=== PATIENT | female | born 2000 | race African-American/Black ===

== ENCOUNTER 2024-11-19 14:29 | Observation (INO) | payer MEDICAID ==
[2024-11-19] MEDS ORDERED: PREN1TAB71 OR (15:34)
[2024-11-19] MEDS ORDERED: ASPI1TAB20 PO (15:34)
[2024-11-19] MEDS ORDERED: LEVO200I5 IV (15:34)
--- NOTE | 2024-11-19 17:38 | DVHDS2 ---
Physician Discharge Progress N Final Diagnosis: DEC MOVWMWNT RESOLVED Operations or Procedures: Operations or Procedures NST,SONO Condition on Discharge: Good Disposition: Home Discharge Instructions: Diet: Regular Activity: No Restrictions, As Tolerated Medications: NA Follow Up Care: Specialist: 1D Discharge Statement: "Patient was advised to return to the ER or call 911 if any headaches, dizziness, shortness of breath, chest pain, abdominal pain, bleeding, fevers, or worsening of medical condition. Patient was counseled about treatment plan, medications, possible side effects, patientverbalized understanding. All questions were answered to the best of my ability. This discharge took greater then 30 minutes in planning, reviewing documenta tion, counseling the patient, and discussing with other team members." STEPHEN NAIR DO Nov 19, 2024 17:38
== END 2024-11-19 15:50 | disposition home or self-care (01) ==
LOC: LDRP 14:29
PROVIDERS: ADMIT Obstetrics & Gynecology; ATTEND Obstetrics & Gynecology
DX: O36.8120 Decreased fetal movements, second trimester, not applicable or unspecified (principal); Z98.890 Other specified postprocedural states; Z79.899 Other long term (current) drug therapy; Z3A.27 27 weeks gestation of pregnancy
CPT/HCPCS: 59025; 81002; G0378

== ENCOUNTER → 2025-01-31 | Outpatient (CLI) | payer MEDICAID ==
[~2025-01-31] MED LIST: ASPI1TAB20 PO; LEVO200I5 IV; PREN1TAB71 OR
[2025-01-31 10:14] LABS: Basophils # (auto) 0 10 ^3/uL (0-0.2); Basophils % (auto) 0.2 % (0.0-2.0); Eosinophils # (auto) 0.2 10 ^3/uL (0-0.8); Eosinophils % (auto) 2.1 % (0.0-7.0); Hematocrit 37.2 % (36.0-46.0); Hemoglobin 12.3 g/dL (12.2-16.2); Lymphocytes # (auto) 2.2 10 ^3/uL (0.4-5.4); Lymphocytes % (auto) 23.3 % (10.0-50.0); Mean Corpuscular Hemoglobin 27.4 pg (28.0-32.0); Mean Corpuscular Hgb Conc. 33.1 g/dL (32.0-36.0); Mean Corpuscular Volume 82.6 fL (80.0-100.0); Monocytes # (auto) 0.5 10 ^3/uL (0-1.3); Neutrophils # (auto) 6.5 10 ^3/uL (1.6-8.6); Neutrophils % (auto) 69.4 % (37.0-80.0); Platelet Count (auto) 198 10^3/uL (140-450); Red Cell Distribution Width 15.6 % (11.8-14.3); White Blood Cell 9.4 10^3/uL (4.4-10.8)
[2025-01-31 10:31] LABS: Alanine Aminotransferase 15 U/L (7-40); Albumin 3.8 g/dL (3.2-4.8); Anion Gap 8 (5-15); Calcium 9.7 mg/dL (8.7-10.4); Carbon Dioxide 23 mmol/L (20-31); Glucose 83 mg/dL (74-106); Potassium 3.8 mmol/L (3.5-5.1); Sodium 139 mmol/L (136-145); Total Protein 6.5 g/dL (5.7-8.2)
[2025-01-31 10:32] LABS: Bilirubin, Total 0.4 mg/dL (0.2-1.0)
[2025-01-31 10:38] LABS: Alkaline Phosphatase 132 U/L (46-116); Aspartate Aminotransferase 11 U/L (13-40); BUN/Creatinine Ratio 8.5 (10.0-20.0); Blood Urea Nitrogen < 5 mg/dL (9-23); Chloride 108 mmol/L (98-107)
== END | disposition home or self-care (01) ==
LOC: LAB 09:38
PROVIDERS: ATTEND Obstetrics & Gynecology
DX: O99.280 Endocrine, nutritional and metabolic diseases complicating pregnancy, unspecified trimester (principal); E28.2 Polycystic ovarian syndrome; Z3A.00 Weeks of gestation of pregnancy not specified
CPT/HCPCS: 36415; 80053; 83036; 84439; 84443; 85025; 86850; 86900; 86901

== ENCOUNTER 2025-02-02 07:04 | Inpatient (IN) | payer MEDICAID ==
[~2025-02-02] VITALS: Ht 149.9 cm; Wt 129.3 kg
[2025-02-02] MEDS: LACT. RINGERS/OXYTOCIN 20UNITS 500 ML IV ONE ×2 (09:15→09:45)
[2025-02-02] MEDS ORDERED: LIDOCAINE 2%HCL (LOCAL ANESTH.) INJ 20ML MDV IJ PRN (09:15)
[2025-02-02] MEDS: LACTATED RINGER'S 1,000 ML IV SCH (09:15)
[2025-02-02 09:54] LABS: Albumin 4.1 g/dL (3.2-4.8); Anion Gap 8 (5-15); Basophils # (auto) 0 10 ^3/uL (0-0.2); Basophils % (auto) 0.2 % (0.0-2.0); Calcium 9.7 mg/dL (8.7-10.4); Carbon Dioxide 20 mmol/L (20-31); Eosinophils # (auto) 0.2 10 ^3/uL (0-0.8); Eosinophils % (auto) 1.5 % (0.0-7.0); Glucose 85 mg/dL (74-106); Hematocrit 40.4 % (36.0-46.0); Hemoglobin 13.4 g/dL (12.2-16.2); Lymphocytes % (auto) 19.6 % (10.0-50.0); Mean Corpuscular Hemoglobin 27.3 pg (28.0-32.0); Mean Corpuscular Hgb Conc. 33.2 g/dL (32.0-36.0); Mean Corpuscular Volume 82.3 fL (80.0-100.0); Monocytes # (auto) 0.5 10 ^3/uL (0-1.3); Monocytes % (auto) 5.3 % (0.0-12.0); Neutrophils # (auto) 7.6 10 ^3/uL (1.6-8.6); Neutrophils % (auto) 73.4 % (37.0-80.0); Nucleated Red Blood Cells % 0.1 %; Platelet Count (auto) 215 10^3/uL (140-450); Potassium 3.8 mmol/L (3.5-5.1); Red Blood Cells 4.92 10^6/uL (4.0-5.20); Red Cell Distribution Width 15.6 % (11.8-14.3); Sodium 137 mmol/L (136-145); Total Protein 6.9 g/dL (5.7-8.2); White Blood Cell 10.4 10^3/uL (4.4-10.8)
[2025-02-02 09:55] LABS: Bilirubin, Total 0.6 mg/dL (0.2-1.0)
[2025-02-02 09:59] LABS: Alanine Aminotransferase 9 U/L (7-40); Alkaline Phosphatase 139 U/L (46-116); Aspartate Aminotransferase 13 U/L (13-40); BUN/Creatinine Ratio 8.8 (10.0-20.0); Blood Urea Nitrogen < 5 mg/dL (9-23); Chloride 109 mmol/L (98-107); INR 0.93 (0.9-1.15); Partial Thromboplastin Time 27.1 SEC (24.5-34.5); Prothrombin Time 9.9 sec (9.3-11.8)
[2025-02-02 10:01] LABS: Amphetamine Screen, Urine Neg (NEGATIVE); Barbiturate Scree,Urine Neg (NEGATIVE); Benzodiazephine Screen, Urine Neg (NEGATIVE); Cannabinoid Screen, Urine Neg (NEGATIVE); Cocaine Screen, Urine Neg (NEGATIVE); Opiate Scree,Urine Neg (NEGATIVE); Phencyclidine Screen, Urine Neg (NEGATIVE)
[2025-02-02 10:22] LABS: Urine Bacteria MOD /hpf (None Seen); Urine Blood Negative /uL (Negative); Urine Clarity Ex.Turbid (Clear); Urine Mucus FEW (None Seen); Urine Protein, UAD 1+ (Negative); Urine Specific Gravity 1.026 (1.001-1.035); Urine Squamous Epithelial Cell MANY /hpf (<5); Urine Urobilinogen 3 mg/dL (Negative); Urine WBC 40 /HPF (0-5)
[2025-02-02 10:24] LABS: Urine Color DARK YELLOW (Yellow)
--- NOTE | 2025-02-02 11:24 | DVH ---
LIMITED OB ULTRASOUND > 14 WKS: HISTORY: IOL- verification of cephalic presentation TECHNIQUE: Multiple real-time grayscale images of the gravid uterus with duplex Doppler color flow an d M-mode spectral analysis. TRANSDUCER: Transabdominal COMPARISON: None FINDINGS/IMPRESSION: heart rate 164 beats per minute FRANCISCO 18.1 cm Cervix is not visualized Cephalic Presentation Posterior/fundal Placenta without previa or abruption.
[2025-02-02] MEDS: miSOPROStol 50 MCG per PRE-CUT 1/2 TAB PO PRN (11:56)
--- NOTE | 2025-02-02 14:12 | DVHHP2 ---
OB CC & HPI Date Date of Admission: Feb 02, 2025 Patient Identification: : 1 Para: 0 EDC: Feb 12, 2025 EGA: 38+wks Chief Complaints: Reason for admission: induction of labor Admission Nurse Assessment Rev: No History of Present Complaints pt is admitted for induction of labor due to gdm ,decreased movement. no report of vag bleeding Past Medical History Cardiac: No pertinent Hx Pulmonary: No pertinent Hx Central Nervous System: No pertinent Hx GI: No pertinent Hx Hemotology/Oncology: No pertinent Hx Hepatobiliary: No pertinent Hx Psychiatric: No pertinent Hx Musculoskeletal: No pertinent Hx Rheumotologic: No pertinent Hx Infectious Disease: No peritnent Hx ENT: No pertinent Hx Renal/: No pertinent Hx Endocrine: No pertinent Hx Dermatology: No pertinent Hx Past Surgical History: No pertinent Hx OB History OB History Care: Good Care Ultrasounds: Normal mid trimester US Obstetrical Complications: Gestational Diabetes Medical Complications: None Allergies: Coded Allergies: Iodide (Verified Allergy, Unknown, 02/02/25) Shellfish Allergy (Verified Allergy, Unknown, 02/02/25) Home Meds Reported Medications Levothyroxine Sodium (LEVOTHYROXINE SODIUM) 200 Mcg Inj, 200 MCG IV, INJ 11/19/24 Aspirin (Aspir-81) 81 Mg Tab, 1 TAB PO DAILY, #30 TAB 5 Refills 11/19/24 Vit W/ Ferrous Fumara (PNV PLUS MULTIVI) Plus Tab, 1 OR, TAB 11/19/24 Current Medications Current Medications Medications (Trade) Dose Ordered Sig/Rehan Route PRN Reason Start Time Stop Time Status Last Admin Lactated Ringer's 1,000 ml @ 125 mls/hr Q8H IV 02/02/25 09:15 02/02/25 09:15 Nalbuphine HCl (Nubain) 10 mg Q4HP PRN IV MODERATE PAIN (4-6 PAIN SCALE) 02/02/25 09:15 Witch Tisha (Tucks) 1 pad PRN PRN TOP PERINEAL AREA DISCOMFORT 02/02/25 09:15 Sodium Lauryl Sulfate (Phisoderm) 240 ml PRN PRN TOP PERINEAL AREA DISCOMFORT 02/02/25 09:15 Benzocaine (Dermoplast) 1 applic PRN PRN TOP PERINEAL AREA DISCOMFORT 02/02/25 09:15 Misoprostol (Cytotec) 50 mcg Q4HPRN PRN PO CERVICAL RIPENING 02/02/25 09:15 02/02/25 11:56 Lidocaine HCl (Xylocaine) 20 ml ONCE PRN IJ PERINEAL AREA DISCOMFORT 02/02/25 09:15 Ondansetron HCl (Zofran) 4 mg Q4HPRN PRN IV NAUSEA / VOMITING 02/02/25 09:15 Levothyroxine Sodium (Synthroid Tablet) 75 mcg QAM PO 02/03/25 05:00 Family & Social History Family/Social History Blood Type: B+ Rubella: immune RPR/VDRL: Negative GBS Status: Negative HBsAG: Negative Review of Systems Constitutional: No symptom reported Ears, Nose, & Throat: No symptom reported Eyes: No symptom reported Pulmonary/Respiratory: No symptom reported Cardiovascular: No symptom reported Gastrointestinal: No symptom reported Genitourinary: No symptom reported Musculoskeletal: No symptom reported Skin: No symptom reported Psychiatric: No symptom reported Endocrine: No symptom reported Hemotologic/Lymphatic: No symptom reported OB Admission Exam Physical Exam HEENT: TMs Normal, Fontanelles Normal, Nasal Mucosa Normal, Eyes non-injected, Oropharynx Normal, PERRLA, Moist Membranes, EOMI Heart: Rhythm Normal Lungs: Clear Abdomen: Non tender Extremities: Normal Reflexes: Normal Cervical Dilatation: Fingertip Effacement: 50% Station: -3 Membranes: Intact Heart Rate: 130's Accelerations: Accelerations Present Decelerations: No Decelerations Short Term Variability: Present Rn Patient Care Variability: Average (6-25) Intensity: Mild OB Plan Plan Admitting Diagnosis: induction of labor gdm morbid obesity Plan: Induction Induction Methd: Misoprostol protocol Other Plan: informed consent obtained risks and complication of induction d/w pt. all questions answered pt fully understands and wishe sto proceed w/iol Visit Coding OBGYN Date of Service: Feb 02, 2025 Billing Provider: STEPHEN NAIR DO RN [facility] Common Visit Codes: [id number] SAME DATE (HIGH) RN [facility] Consultation Codes: [id number] CONSULT <80MIN STEPHEN NAIR DO Feb 02, 2025 14:12
[2025-02-02 20:19] LABS: Urine Bacteria None Seen /hpf (None Seen)
[2025-02-02 20:38] LABS: Urine Amorphous Crystal FEW /hpf (None Seen); Urine Blood Negative /uL (Negative); Urine Clarity Clear (Clear); Urine Color Yellow (Yellow); Urine Mucus FEW (None Seen); Urine Protein, UAD TRACE (Negative); Urine Specific Gravity 1.021 (1.001-1.035); Urine Squamous Epithelial Cell FEW /hpf (<5); Urine Urobilinogen 2 mg/dL (Negative); Urine WBC 2 /HPF (0-5)
[2025-02-02] MEDS: DERMOPLAST 60ML BOTTLE TOP PRN (21:50)
[2025-02-02] MEDS: PHISODERM TOP SOLN 240ML BTL TOP PRN (21:50)
[2025-02-02] MEDS: WITCH HAZEL-GLYCERIN PAD TOP PRN (21:50)
[2025-02-03 03:33] VITALS: BP 105/62; PULSE 58; RESP 16; TEMP 98; O2SAT 95
[2025-02-03] MEDS: LEVOTHYROXINE SODIUM 25 MCG TAB PO SCH (04:44)
--- NOTE | 2025-02-03 07:13 | DVHPN2 ---
Chief Complaints Patient reports: No new complaints Nursing reports: No new complaints Objective Vitals Vital Signs Date Time Temp Pulse Resp B/P (MAP) Pulse Ox O2 Delivery O2 Flow Rate FiO2 02/03/25 03:33 98.0 58 16 105/62 (76) 95 98.0 Medications Current Medications Medications (Trade) Dose Ordered Sig/Rehan Route PRN Reason Start Time Stop Time Status Last Admin Benzocaine (Dermoplast) 1 applic PRN PRN TOP PERINEAL AREA DISCOMFORT 02/02/25 09:15 02/02/25 21:50 Lactated Ringer's 1,000 ml @ 125 mls/hr Q8H IV 02/02/25 09:15 02/03/25 01:20 Levothyroxine Sodium (Synthroid Tablet) 75 mcg QAM PO 02/03/25 05:00 02/03/25 04:44 Lidocaine HCl (Xylocaine) 20 ml ONCE PRN IJ PERINEAL AREA DISCOMFORT 02/02/25 09:15 Misoprostol (Cytotec) 50 mcg Q4HPRN PRN PO CERVICAL RIPENING 02/02/25 09:15 02/03/25 07:00 Nalbuphine HCl (Nubain) 10 mg Q4HP PRN IV MODERATE PAIN (4-6 PAIN SCALE) 02/02/25 09:15 Ondansetron HCl (Zofran) 4 mg Q4HPRN PRN IV NAUSEA / VOMITING 02/02/25 09:15 Sodium Lauryl Sulfate (Phisoderm) 240 ml PRN PRN TOP PERINEAL AREA DISCOMFORT 02/02/25 09:15 02/02/25 21:50 Witch Tisha (Tucks) 1 pad PRN PRN TOP PERINEAL AREA DISCOMFORT 02/02/25 09:15 02/02/25 21:50 Others ve-1cm/60/-2 Studies Laboratory Tests 02/02/25 09:15 Test 02/02/25 09:15 Range/Units Serum Glucose 85 74-106 mg/dL Ass/Plan Assessment iol for gdm Plan pt endorsed to dr lin oncall doctor Visit Coding OBGYN Date of Service: Feb 03, 2025 Billing Provider: STEPHEN NAIR DO [employer] Common Visit Codes: [id number] DISCH DAY <30MIN STEPHEN NAIR DO Feb 03, 2025 07:13
--- NOTE | 2025-02-03 16:04 | DVHPN2 ---
OB Labor Progress Note Date and Time Seen Date Seen: Feb 03, 2025 Time Seen: 16:00 Subjective Patient reports: No new complaints Objective Vital Signs VSS Monitoring Method Monitoring Method: External Heart Rate Heart Rate Baseline: 150 Heart Rate Variability: Moderate Presence of FHR Accelerations: Yes Presence of FHR Decelerations: No Contractions Contractions Intensity: Moderate Membranes Membranes: Intact Vaginal Exam Vaginal Exam Dilation: 1 Vaginal Exam Effacement: 50 Vaginal Exam Station: -3 Vaginal Exam Presentation: VTX Vaginal Exam Show: Small (Inetec Cervical dil balloon inserted tolerated well. 80ml each balloon) Medications Medications - Pitocin: No Medication - Epidural: No Lab Results Lab Results Vital Signs Date Time Temp Pulse Resp B/P (MAP) Pulse Ox O2 Delivery O2 Flow Rate FiO2 02/03/25 03:33 98.0 58 16 105/62 (76) 95 98.0 Current Medications Medications (Trade) Dose Ordered Sig/Rehan Start Time Stop Time Status Last Admin Dose Admin Lactated Ringer's 1,000 ml @ 125 mls/hr Q8H 02/02/25 09:15 02/03/25 01:20 125 MLS/HR Nalbuphine HCl (Nubain) 10 mg Q4HP PRN 02/02/25 09:15 Witch Tisha (Tucks) 1 pad PRN PRN 02/02/25 09:15 02/02/25 21:50 1 PAD Sodium Lauryl Sulfate (Phisoderm) 240 ml PRN PRN 02/02/25 09:15 02/02/25 21:50 240 ML Benzocaine (Dermoplast) 1 applic PRN PRN 02/02/25 09:15 02/02/25 21:50 1 APPLIC Misoprostol (Cytotec) 50 mcg Q4HPRN PRN 02/02/25 09:15 02/03/25 11:32 50 MCG Lidocaine HCl (Xylocaine) 20 ml ONCE PRN 02/02/25 09:15 Ondansetron HCl (Zofran) 4 mg Q4HPRN PRN 02/02/25 09:15 Oxytocin 500 ml @ 999 mls/hr Q31M ONCE 02/02/25 09:15 02/02/25 09:45 DC Oxytocin 500 ml @ 125 mls/hr Q4H ONCE 02/02/25 09:45 02/02/25 13:44 DC Levothyroxine Sodium (Synthroid Tablet) 75 mcg QAM 02/03/25 05:00 02/03/25 08:41 DC 02/03/25 04:44 75 MCG Levothyroxine Sodium (Synthroid Tablet) 75 mcg DAILY@0500 02/04/25 05:00 Laboratory Tests Test 02/03/25 15:25 02/02/25 19:40 02/02/25 09:15 02/02/25 07:50 Range/Units POC Glucose 123 H 70-106 mg/dl Urine Color Yellow Yellow Urine Clarity Clear Clear Urine pH 6.0 5.0-9.0 Urine Specific [place] 1.021 1.001-1.035 Urine Protein Trace H Negative Urine Ketones Negative Negative Urine Blood Negative Negative /uL Urine Nitrite Negative Negative Urine Bilirubin Negative Negative Urine Urobilinogen 2 H Negative mg/dL Urine Leukocyte Esterase Trace Negative /uL Urine RBC 1 0 - 4 /hpf Urine Microscopic WBC 2 0-5 /HPF Urine Squamous Epithelial Cells Few <5 /hpf Urine Amorphous Crystals Few None Seen /hpf Urine Bacteria None seen None Seen /hpf Urine Mucus Few None Seen Urine Glucose Normal Normal mg/dL White Blood Count 10.4 4.4-10.8 10^3/uL Red Blood Count 4.92 4.0-5.20 10^6/uL Hemoglobin 13.4 12.2-16.2 g/dL Hematocrit 40.4 36.0-46.0 % Mean Corpuscular Volume 82.3 80.0-100.0 fL Mean Corpuscular Hemoglobin 27.3 L 28.0-32.0 pg Mean Corpuscular Hemoglobin Concent 33.2 32.0-36.0 g/dL Red Cell Distribution Width 15.6 H 11.8-14.3 % Platelet Count 215 140-450 10^3/uL Mean Platelet Volume 10.0 6.9-10.8 fL Neutrophils (%) (Auto) 73.4 37.0-80.0 % Lymphocytes (%) (Auto) 19.6 10.0-50.0 % Monocytes (%) (Auto) 5.3 0.0-12.0 % Eosinophils (%) (Auto) 1.5 0.0-7.0 % Basophils (%) (Auto) 0.2 0.0-2.0 % Neutrophils # (Auto) 7.6 1.6-8.6 10 ^3/uL Lymphocytes # (Auto) 2.0 0.4-5.4 10 ^3/uL Monocytes # (Auto) 0.5 0-1.3 10 ^3/uL Eosinophils # (Auto) 0.2 0-0.8 10 ^3/uL Basophils # (Auto) 0 0-0.2 10 ^3/uL Nucleated Red Blood Cells 0.1 % Prothrombin Time 9.9 9.3-11.8 sec Prothrombin Time INR 0.93 0.9-1.15 Activated Partial Thromboplast Time 27.1 24.5-34.5 SEC Sodium Level 137 136-145 mmol/L Potassium Level 3.8 3.5-5.1 mmol/L Chloride Level 109 H 98-107 mmol/L Carbon Dioxide Level 20 20-31 mmol/L Anion Gap 8 5-15 Blood Urea Nitrogen < 5 L 9-23 mg/dL Creatinine 0.57 0.550-1.02 mg/dL Glomerular Filtration Rate Calc 128 >90 mL/min BUN/Creatinine Ratio 8.8 L 10.0-20.0 Serum Glucose 85 74-106 mg/dL Calcium Level 9.7 8.7-10.4 mg/dL Total Bilirubin 0.6 0.2-1.0 mg/dL Aspartate Amino Transferase (AST) 13 13-40 U/L Alanine Aminotransferase (ALT) 9 7-40 U/L Alkaline Phosphatase 139 H 46-116 U/L Total Protein 6.9 5.7-8.2 g/dL Albumin 4.1 3.2-4.8 g/dL Treponema pallidum Antibody Non-reactive Negative Hepatitis C Antibody Negative Negative Urine Opiates Screen Neg NEGATIVE Urine Fentanyl Screen Neg NEGATIVE Urine Barbiturates Screen Neg NEGATIVE Urine Phencyclidine Screen Neg NEGATIVE Urine Amphetamines Screen Neg NEGATIVE Urine Benzodiazepines Screen Neg NEGATIVE Urine Cocaine Screen Neg NEGATIVE Urine Cannabinoids Screen Neg NEGATIVE Assessment Assessment Term IUP GDMA1 Morbid obesity Plan Plan s/p Cytotec x 6 doses Minimal cervical effacement/dilation Cook's cervical ripening Balloon inserted in usual fashion tolerated well Continue to observe Plan discussed with: Patient, Other (RN) Visit Coding OBGYN Date of Service: Feb 03, 2025 Billing Provider: RUSS NAVARRETE DO DIGITAL PRODUCTION MANAGER Common Visit Codes: [id number] INP/OBS CARE(HIGH) RUSS NAVARRETE DO Feb 03, 2025 16:04
[2025-02-03] MEDS: ONDANSETRON HCL 4 MG/2 ML VIAL IV PRN (17:58)
[2025-02-03] MEDS: NALBUPHINE HCL 10 MG/1ml INJECTION IV PRN (17:59)
[2025-02-03] MEDS: NALOXONE HCL 0.4 MG/ML VIAL IV ONE (22:15)
[2025-02-03] MEDS: ePHEDrine SULFATE 50 MG/ML AMP IV ONE (22:15)
[2025-02-03] MEDS ORDERED: TERBUTALINE SULFATE 1 MG/ML 1ML VIAL SC PRN (23:30)
[2025-02-03] MEDS: LACTATED RINGER'S 1,000 ML IV ONE (23:56)
--- NOTE | 2025-02-04 04:00 | DVHPN2 ---
OB Labor Progress Note Date and Time Seen Date Seen: Feb 04, 2025 Time Seen: 03:56 Subjective Patient reports: No new complaints, Feels better (s/p Epidural) Subjective Comment Cervical COOK Balloon expelled spontaneously . Patient was 4cm dilated started on Pitocin. s/p Epidural Resting comfortably Objective Vital Signs Afeb VS stable Monitoring Method Monitoring Method: Internal Heart Rate Heart Rate Baseline: 125 Heart Rate Variability: Moderate Presence of FHR Accelerations: Yes Presence of FHR Decelerations: No Contractions Contractions Frequency: Other (2-3 in 10 mins) Contractions Intensity: Moderate Contractions Resting Tone: Relaxed Membranes Membranes: Ruptured (AROM clear fluid) Amniotic Fluid Color: Clear Vaginal Exam Vag Exam Deferred: No Vaginal Exam Dilation: 4 Vaginal Exam Effacement: 80 Vaginal Exam Station: -2 Vaginal Exam Presentation: VTX Vaginal Exam Show: None Medications Medications - Pitocin: Yes Medication - Epidural: Yes Lab Results Lab Results Vital Signs Date Time Temp Pulse Resp B/P (MAP) Pulse Ox O2 Delivery O2 Flow Rate FiO2 02/03/25 17:59 90 18 132/76 02/03/25 03:33 98.0 95 98.0 Current Medications Medications (Trade) Dose Ordered Sig/Rehan Start Time Stop Time Status Last Admin Dose Admin Lactated Ringer's 1,000 ml @ 125 mls/hr Q8H 02/02/25 09:15 02/04/25 08:52 125 MLS/HR Nalbuphine HCl (Nubain) 10 mg Q4HP PRN 02/02/25 09:15 02/03/25 17:59 10 MG Witch Tisha (Tucks) 1 pad PRN PRN 02/02/25 09:15 02/02/25 21:50 1 PAD Sodium Lauryl Sulfate (Phisoderm) 240 ml PRN PRN 02/02/25 09:15 02/02/25 21:50 240 ML Benzocaine (Dermoplast) 1 applic PRN PRN 02/02/25 09:15 02/02/25 21:50 1 APPLIC Misoprostol (Cytotec) 50 mcg Q4HPRN PRN 02/02/25 09:15 02/03/25 11:32 50 MCG Lidocaine HCl (Xylocaine) 20 ml ONCE PRN 02/02/25 09:15 Ondansetron HCl (Zofran) 4 mg Q4HPRN PRN 02/02/25 09:15 02/04/25 01:30 4 MG Oxytocin 500 ml @ 999 mls/hr Q31M ONCE 02/02/25 09:15 02/02/25 09:45 DC Oxytocin 500 ml @ 125 mls/hr Q4H ONCE 02/02/25 09:45 02/02/25 13:44 DC Levothyroxine Sodium (Synthroid Tablet) 75 mcg QAM 02/03/25 05:00 02/03/25 08:41 DC 02/03/25 04:44 75 MCG Levothyroxine Sodium (Synthroid Tablet) 75 mcg DAILY@0500 02/04/25 05:00 02/04/25 05:18 75 MCG Naloxone HCl (Narcan) 0.2 mg PRN ONCE 02/03/25 22:15 02/03/25 22:16 DC Ephedrine Sulfate (ePHEDrine SULFATE) 10 mg PRN ONCE 02/03/25 22:15 02/03/25 22:16 DC Lactated Ringer's 1,000 ml @ 1,000 mls/hr Q1H ONCE 02/03/25 22:15 02/03/25 23:14 DC 02/03/25 23:56 1,000 MLS/HR Oxytocin 1,000 ml @ 6 ml/hr Q24H 02/03/25 23:30 02/04/25 04:32 6 ML/HR Terbutaline Sulfate (Brethine Inj) 0.25 mg ONCE PRN 02/03/25 23:30 Laboratory Tests Test 02/04/25 07:05 02/02/25 19:40 02/02/25 09:15 02/02/25 07:50 Range/Units POC Glucose 83 70-106 mg/dl Urine Color Yellow Yellow Urine Clarity Clear Clear Urine pH 6.0 5.0-9.0 Urine Specific [place] 1.021 1.001-1.035 Urine Protein Trace H Negative Urine Ketones Negative Negative Urine Blood Negative Negative /uL Urine Nitrite Negative Negative Urine Bilirubin Negative Negative Urine Urobilinogen 2 H Negative mg/dL Urine Leukocyte Esterase Trace Negative /uL Urine RBC 1 0 - 4 /hpf Urine Microscopic WBC 2 0-5 /HPF Urine Squamous Epithelial Cells Few <5 /hpf Urine Amorphous Crystals Few None Seen /hpf Urine Bacteria None seen None Seen /hpf Urine Mucus Few None Seen Urine Glucose Normal Normal mg/dL White Blood Count 10.4 4.4-10.8 10^3/uL Red Blood Count 4.92 4.0-5.20 10^6/uL Hemoglobin 13.4 12.2-16.2 g/dL Hematocrit 40.4 36.0-46.0 % Mean Corpuscular Volume 82.3 80.0-100.0 fL Mean Corpuscular Hemoglobin 27.3 L 28.0-32.0 pg Mean Corpuscular Hemoglobin Concent 33.2 32.0-36.0 g/dL Red Cell Distribution Width 15.6 H 11.8-14.3 % Platelet Count 215 140-450 10^3/uL Mean Platelet Volume 10.0 6.9-10.8 fL Neutrophils (%) (Auto) 73.4 37.0-80.0 % Lymphocytes (%) (Auto) 19.6 10.0-50.0 % Monocytes (%) (Auto) 5.3 0.0-12.0 % Eosinophils (%) (Auto) 1.5 0.0-7.0 % Basophils (%) (Auto) 0.2 0.0-2.0 % Neutrophils # (Auto) 7.6 1.6-8.6 10 ^3/uL Lymphocytes # (Auto) 2.0 0.4-5.4 10 ^3/uL Monocytes # (Auto) 0.5 0-1.3 10 ^3/uL Eosinophils # (Auto) 0.2 0-0.8 10 ^3/uL Basophils # (Auto) 0 0-0.2 10 ^3/uL Nucleated Red Blood Cells 0.1 % Prothrombin Time 9.9 9.3-11.8 sec Prothrombin Time INR 0.93 0.9-1.15 Activated Partial Thromboplast Time 27.1 24.5-34.5 SEC Sodium Level 137 136-145 mmol/L Potassium Level 3.8 3.5-5.1 mmol/L Chloride Level 109 H 98-107 mmol/L Carbon Dioxide Level 20 20-31 mmol/L Anion Gap 8 5-15 Blood Urea Nitrogen < 5 L 9-23 mg/dL Creatinine 0.57 0.550-1.02 mg/dL Glomerular Filtration Rate Calc 128 >90 mL/min BUN/Creatinine Ratio 8.8 L 10.0-20.0 Serum Glucose 85 74-106 mg/dL Calcium Level 9.7 8.7-10.4 mg/dL Total Bilirubin 0.6 0.2-1.0 mg/dL Aspartate Amino Transferase (AST) 13 13-40 U/L Alanine Aminotransferase (ALT) 9 7-40 U/L Alkaline Phosphatase 139 H 46-116 U/L Total Protein 6.9 5.7-8.2 g/dL Albumin 4.1 3.2-4.8 g/dL Treponema pallidum Antibody Non-reactive Negative Hepatitis C Antibody Negative Negative Urine Opiates Screen Neg NEGATIVE Urine Fentanyl Screen Neg NEGATIVE Urine Barbiturates Screen Neg NEGATIVE Urine Phencyclidine Screen Neg NEGATIVE Urine Amphetamines Screen Neg NEGATIVE Urine Benzodiazepines Screen Neg NEGATIVE Urine Cocaine Screen Neg NEGATIVE Urine Cannabinoids Screen Neg NEGATIVE Assessment Assessment Term IUP, GDMA1, Morbid Obesity Induction of labor s/p Amniotomy Plan Plan Continue labor induction with Pitocin Observe for adequate labor progression status reassuring Plan discussed with: Patient Visit Coding OBGYN Date of Service: Feb 04, 2025 Billing Provider: RUSS NAVARRETE DO RESIDENT CARE AIDE Common Visit Codes: [id number] INP/OBS CARE(HIGH) RUSS NAVARRETE DO Feb 04, 2025 04:00
[2025-02-04] MEDS: LACT. RINGERS/OXYTOCIN 20UNITS 1,000 ML IV SCH (04:32)
[2025-02-04] MEDS: LEVOTHYROXINE SODIUM 25 MCG TAB PO SCH (05:18)
[2025-02-04] MEDS: LIDOCAINE 2% (LOCAL ANESTH.) PF 5ml SDV ONE (14:35)
[2025-02-04] MEDS: ROPIVACAINE HCL 200 ML ONE ×2 (14:36→17:43)
[2025-02-04] MEDS: LIDOCAINE HCL 2 %PF INJ 10ML AMP IJ ONE ×4 (14:53→22:27)
[2025-02-04] MEDS: LIDOCAINE HCL 2 %PF INJ 10ML AMP IJ STA (14:59)
[2025-02-04] MEDS: fentaNYL CITRATE 100 MCG/2 ML VL ONE ×2 (14:59→18:03)
--- NOTE | 2025-02-04 15:32 | DVHNC2 ---
Procedure - Called for break-through labor pain. She is a , here for induction of labor. She received her epidural around 0500 this morning. She is 5-6cm dilated. BP 130/84 HR 89 spO2 99%. I bolused 100mcg fentanyl and 3cc 2% PF lido via her epidural and increased her 0.2% ropivacaine infusion to 12cc/hr. Patient reports good pain relief. Will follow as needed. CELE MARIE MD Feb 04, 2025 15:32
--- NOTE | 2025-02-04 19:18 | EPIDURAL ---
Anesthesia Procedural Note - Epidural Informed consent obtained?: Yes Sterile prept drape: Yes Spinal level of insertion: L4-L5 Infusion started: Yes Start time: 18:31 End time: 17:00 Procedure description Procedure description: Called for breakthrough labor pain & examined patient at the bedside at 1831. Original epidural no longer functional. Discussed options with patient who agreed to replace it. Informed consent for CSE. Sitting position. Original catheter appeared intact at level of skin at the L3-4 interspace. I pulled the catheter (blue tip intact) and noted two tight kinks in it which might explain why it was no longer working as well. Sterile prep with chloroprep and drape. Time out done at 1842 (BP 143/87 HR 94 spO2 98). L4-5 space infiltrated with 1% lido. Epidural needle placed with CHELSEA at 9cm at 1849. 25G spinal needle +clear CSF. 15 mcg fentanyl given IT at 1850 (BP 143/84 HR 85 spO2 99). Epidural catheter secured at 15cm. Aspiration and test dose (3cc 1.5% lido with epi) negative at 1852 (BP 141/83 HR 90 spO2 98). 85mcg fentanyl given via epidural at 1855 (BP 132/72 HR 78 spO2 99). Patient reports good pain relief. 0.2% ropivacaine infusion resumed (BP 118/78 HR 86 spO2 99). Will follow as needed. CELE MARIE MD Feb 04, 2025 19:18
[2025-02-04] MEDS: NALOXONE HCL 0.4 MG/ML VIAL IV ONE (19:45)
[2025-02-04] MEDS: ePHEDrine SULFATE 50 MG/ML AMP IV ONE (19:45)
[2025-02-04] MEDS: MAALOX PLUS or MAALOX 30 ML PO ONE (21:25)
[2025-02-04] MEDS: LACTATED RINGER'S 1,000 ML IV ONE (22:15)
[2025-02-04] MEDS: LACTATED RINGER'S 1,000 ML IV SCH (22:15)
[2025-02-04] MEDS: ceFAZolin 2 GM/D5W50ml 50 ML IV ONE (22:15)
--- NOTE | 2025-02-04 22:23 | DVHPN2 ---
OB Labor Progress Note Date and Time Seen Date Seen: Feb 04, 2025 Time Seen: 22:18 Subjective Patient reports: No new complaints Objective Vital Signs Afeb VS stable Monitoring Method Monitoring Method: Internal Heart Rate Heart Rate Baseline: 130 Heart Rate Variability: Moderate Presence of FHR Accelerations: Yes Presence of FHR Decelerations: Yes Heart Rate Type of Decel: Variable Decelerations (Prolonged decel x 4 mins) Contractions Contractions Intensity: Moderate Contractions Resting Tone: Relaxed Membranes Membranes: Ruptured Amniotic Fluid Color: Clear Vaginal Exam Vag Exam Deferred: No Vaginal Exam Dilation: 7 Vaginal Exam Effacement: 90 Vaginal Exam Station: 0 Vaginal Exam Presentation: VTX Vaginal Exam Show: None Medications Medications - Pitocin: Yes Medication - Epidural: Yes Lab Results Lab Results Vital Signs Date Time Temp Pulse Resp B/P (MAP) Pulse Ox O2 Delivery O2 Flow Rate FiO2 02/04/25 14:59 133/81 02/03/25 17:59 90 18 02/03/25 03:33 98.0 95 98.0 Current Medications Medications (Trade) Dose Ordered Sig/Rehan Start Time Stop Time Status Last Admin Dose Admin Lactated Ringer's 1,000 ml @ 125 mls/hr Q8H 02/02/25 09:15 02/04/25 19:11 125 MLS/HR Nalbuphine HCl (Nubain) 10 mg Q4HP PRN 02/02/25 09:15 02/03/25 17:59 10 MG Witch Tisha (Tucks) 1 pad PRN PRN 02/02/25 09:15 02/02/25 21:50 1 PAD Sodium Lauryl Sulfate (Phisoderm) 240 ml PRN PRN 02/02/25 09:15 02/02/25 21:50 240 ML Benzocaine (Dermoplast) 1 applic PRN PRN 02/02/25 09:15 02/02/25 21:50 1 APPLIC Misoprostol (Cytotec) 50 mcg Q4HPRN PRN 02/02/25 09:15 02/03/25 11:32 50 MCG Lidocaine HCl (Xylocaine) 20 ml ONCE PRN 02/02/25 09:15 Ondansetron HCl (Zofran) 4 mg Q4HPRN PRN 02/02/25 09:15 02/04/25 18:24 4 MG Oxytocin 500 ml @ 999 mls/hr Q31M ONCE 02/02/25 09:15 02/02/25 09:45 DC Oxytocin 500 ml @ 125 mls/hr Q4H ONCE 02/02/25 09:45 02/02/25 13:44 DC Levothyroxine Sodium (Synthroid Tablet) 75 mcg QAM 02/03/25 05:00 02/03/25 08:41 DC 02/03/25 04:44 75 MCG Levothyroxine Sodium (Synthroid Tablet) 75 mcg DAILY@0500 02/04/25 05:00 02/04/25 05:18 75 MCG Naloxone HCl (Narcan) 0.2 mg PRN ONCE 02/03/25 22:15 02/03/25 22:16 DC Ephedrine Sulfate (ePHEDrine SULFATE) 10 mg PRN ONCE 02/03/25 22:15 02/03/25 22:16 DC Lactated Ringer's 1,000 ml @ 1,000 mls/hr Q1H ONCE 02/03/25 22:15 02/03/25 23:14 DC 02/03/25 23:56 1,000 MLS/HR Oxytocin 1,000 ml @ 6 ml/hr Q24H 02/03/25 23:30 02/04/25 04:32 6 ML/HR Terbutaline Sulfate (Brethine Inj) 0.25 mg ONCE PRN 02/03/25 23:30 Lidocaine HCl (Xylocaine-Pf 2% Injection) 20 ml STAT STAT 02/04/25 14:59 02/04/25 15:03 DC Naloxone HCl (Narcan) 0.2 mg PRN ONCE 02/04/25 19:45 02/04/25 19:46 DC Ephedrine Sulfate (ePHEDrine SULFATE) 10 mg PRN ONCE 02/04/25 19:45 02/04/25 19:46 DC Fentanyl Citrate 100 mcg ONCE ONCE 02/04/25 19:45 02/04/25 19:46 DC Lidocaine HCl (Xylocaine-Pf 2% Injection) 10 ml ONCE ONCE 02/04/25 19:45 02/04/25 19:46 DC Al Hydrox/Mg Hydrox/Simethicone (Maalox Plus) 30 ml ONCE ONCE 02/04/25 20:30 02/04/25 20:37 DC 02/04/25 21:25 30 ML Lactated Ringer's 1,000 ml @ 125 mls/hr Q8H 02/04/25 22:15 UNV Lactated Ringer's 1,000 ml @ 1,000 mls/hr Q1H ONCE 02/04/25 22:15 02/04/25 23:14 UNV Cefazolin Sodium/ Dextrose 50 ml @ 50 mls/hr ONCE ONCE 02/04/25 22:15 02/04/25 23:14 UNV Laboratory Tests Test 02/04/25 19:14 02/02/25 19:40 02/02/25 09:15 02/02/25 07:50 Range/Units POC Glucose 80 70-106 mg/dl Urine Color Yellow Yellow Urine Clarity Clear Clear Urine pH 6.0 5.0-9.0 Urine Specific [place] 1.021 1.001-1.035 Urine Protein Trace H Negative Urine Ketones Negative Negative Urine Blood Negative Negative /uL Urine Nitrite Negative Negative Urine Bilirubin Negative Negative Urine Urobilinogen 2 H Negative mg/dL Urine Leukocyte Esterase Trace Negative /uL Urine RBC 1 0 - 4 /hpf Urine Microscopic WBC 2 0-5 /HPF Urine Squamous Epithelial Cells Few <5 /hpf Urine Amorphous Crystals Few None Seen /hpf Urine Bacteria None seen None Seen /hpf Urine Mucus Few None Seen Urine Glucose Normal Normal mg/dL White Blood Count 10.4 4.4-10.8 10^3/uL Red Blood Count 4.92 4.0-5.20 10^6/uL Hemoglobin 13.4 12.2-16.2 g/dL Hematocrit 40.4 36.0-46.0 % Mean Corpuscular Volume 82.3 80.0-100.0 fL Mean Corpuscular Hemoglobin 27.3 L 28.0-32.0 pg Mean Corpuscular Hemoglobin Concent 33.2 32.0-36.0 g/dL Red Cell Distribution Width 15.6 H 11.8-14.3 % Platelet Count 215 140-450 10^3/uL Mean Platelet Volume 10.0 6.9-10.8 fL Neutrophils (%) (Auto) 73.4 37.0-80.0 % Lymphocytes (%) (Auto) 19.6 10.0-50.0 % Monocytes (%) (Auto) 5.3 0.0-12.0 % Eosinophils (%) (Auto) 1.5 0.0-7.0 % Basophils (%) (Auto) 0.2 0.0-2.0 % Neutrophils # (Auto) 7.6 1.6-8.6 10 ^3/uL Lymphocytes # (Auto) 2.0 0.4-5.4 10 ^3/uL Monocytes # (Auto) 0.5 0-1.3 10 ^3/uL Eosinophils # (Auto) 0.2 0-0.8 10 ^3/uL Basophils # (Auto) 0 0-0.2 10 ^3/uL Nucleated Red Blood Cells 0.1 % Prothrombin Time 9.9 9.3-11.8 sec Prothrombin Time INR 0.93 0.9-1.15 Activated Partial Thromboplast Time 27.1 24.5-34.5 SEC Sodium Level 137 136-145 mmol/L Potassium Level 3.8 3.5-5.1 mmol/L Chloride Level 109 H 98-107 mmol/L Carbon Dioxide Level 20 20-31 mmol/L Anion Gap 8 5-15 Blood Urea Nitrogen < 5 L 9-23 mg/dL Creatinine 0.57 0.550-1.02 mg/dL Glomerular Filtration Rate Calc 128 >90 mL/min BUN/Creatinine Ratio 8.8 L 10.0-20.0 Serum Glucose 85 74-106 mg/dL Calcium Level 9.7 8.7-10.4 mg/dL Total Bilirubin 0.6 0.2-1.0 mg/dL Aspartate Amino Transferase (AST) 13 13-40 U/L Alanine Aminotransferase (ALT) 9 7-40 U/L Alkaline Phosphatase 139 H 46-116 U/L Total Protein 6.9 5.7-8.2 g/dL Albumin 4.1 3.2-4.8 g/dL Treponema pallidum Antibody Non-reactive Negative Hepatitis C Antibody Negative Negative Urine Opiates Screen Neg NEGATIVE Urine Fentanyl Screen Neg NEGATIVE Urine Barbiturates Screen Neg NEGATIVE Urine Phencyclidine Screen Neg NEGATIVE Urine Amphetamines Screen Neg NEGATIVE Urine Benzodiazepines Screen Neg NEGATIVE Urine Cocaine Screen Neg NEGATIVE Urine Cannabinoids Screen Neg NEGATIVE Assessment Assessment GDMA1, Term IUP Categ 2 Tracing, prolonged Decel intoleratnce to labor Protraction of labor 1st stage Plan Plan Consented for primary c/section due to NRFHR and failure to progress R/B/A of surgery d/w patient and informed consent obtained Risks of pain, scar, bleeding, infection, injury to bowel, bladder, adjacent organs, blood transfusion all reviewed w/ patient and agrees to proceed. Plan discussed with: Patient, Other (RN) Visit Coding OBGYN Date of Service: Feb 04, 2025 Billing Provider: RUSS NAVARRETE DO MANAGER LAN Common Visit Codes: [id number] INP/OBS CARE(HIGH) RUSS NAVARRETE DO Feb 04, 2025 22:23
[2025-02-04] MEDS: fentaNYL CITRATE 100 MCG/2 ML VL IV ONE (22:29)
[2025-02-04] MEDS: FAMOTIDINE (10MG/ML) 2ML VL IV ONE (22:45)
[2025-02-04] MEDS ORDERED: fentaNYL CITRATE 100 MCG/2 ML VL ONE (22:55)
[2025-02-04] MEDS ORDERED: MORPHINE SULF PF 5 MG/10 ML VIAL ONE (22:55)
[2025-02-04] MEDS ORDERED: GLYCOPYRROLATE 0.2 MG/ML 1ML VIAL ONE (22:56)
[2025-02-04] MEDS ORDERED: PHENYLEPHRINE HCL 10 MG/ML VL ONE (22:56)
[2025-02-04] MEDS ORDERED: ePHEDrine SULFATE 50 MG/ML AMP ONE (22:56)
[2025-02-04] MEDS ORDERED: MIDAZOLAM HCL 2MG/2ML 2ml VIAL (1mg/ml) ONE (23:34)
[2025-02-04] MEDS ORDERED: KETAMINE 50mg/ML 1ml syringe ONE (23:34)
[2025-02-05] VITALS (17 sets, daily range): BP systolic 110–139; BP diastolic 47–90; PULSE 53–94; RESP 16–17; TEMP 97.8–98.4; O2SAT 92–100
[2025-02-05] MEDS ORDERED: KETOROLAC TROMETH 30 MG/ML 1ML VIAL ONE (00:06)
[2025-02-05] MEDS ORDERED: DexAMETHasone SOD PHOS 10MG/1ML VIAL INJ ONE (00:06)
[2025-02-05] MEDS ORDERED: HYDROmorphone HCL 2 MG/ML VL/or syr ONE (00:06)
[2025-02-05] MEDS ORDERED: SUGAMMADEX 200mg/2ml Vial (100MG/ML) IV ONE (00:21)
[2025-02-05] MEDS ORDERED: ONDANSETRON HCL 4 MG/2 ML VIAL IV PRN ×2 (01:00→01:15)
[2025-02-05] MEDS ORDERED: diphenhdrAMINE HCL 50 MG/1 ML VL IV PRN ×2 (01:00→01:15)
[2025-02-05] MEDS ORDERED: LACT. RINGERS/OXYTOCIN 20UNITS 1,000 ML IV ONE (01:00)
[2025-02-05] MEDS ORDERED: HYDROmorphone HCL 2 MG/ML VL/or syr IV PRN (01:00)
--- NOTE | 2025-02-05 01:12 | DVHOP ---
DATE OF SURGERY: 02/05/2025 PREOPERATIVE DIAGNOSES: * Term intrauterine , 39 weeks * Gestational diabetes mellitus A1. * Failed induction of labor * Cephalopelvic disproportion. * intolerance to labor, Category II tracing. * Morbid maternal obesity. POSTOPERATIVE DIAGNOSES: * Term intrauterine , 39 weeks * Gestational diabetes mellitus A1. * Failed induction of labor * Cephalopelvic disproportion. * intolerance to labor, Category II tracing. * Morbid maternal obesity. PROCEDURE PERFORMED: Non-elective primary low transverse section via Pfannenstiel skin incision. SURGEON: Vasquez Adame DO AREA CLEANER: RIB KNITTER TYPE OF ANESTHESIA: Epidural, that was converted to general endotracheal. ANESTHESIOLOGIST: Tiffany Herrera M.D. DESCRIPTION OF FINDINGS: Delivery of a liveborn female in cephalic presentation, occiput posterior, clear amniotic fluid, scores of 3, 7, and 9. There was caput and molding of the head present. There was no nuchal cord. There was normal placenta, normal bilateral ovaries and fallopian tubes. A 2-layer uterine closure. TECHNICAL PROCEDURE: After informed consent was obtained, the patient was taken to the operating room where her epidural anesthesia initially was found to be adequate. The patient was sterilely prepped and draped in the usual sterile fashion. A Pfannenstiel skin incision was made with the scalpel. The incision was carried down sharply to the underlying layer of fascia. Past the fascial incision, the patient started to report pain, therefore, decision by Anesthesia was to convert to general endotracheal. After induction of anesthesia and intubation, the surgery continued. The rectus fascia was dissected off the rectus muscles. Entry into the peritoneal cavity was performed bluntly using digital technique. The peritoneal incision was extended superiorly and inferiorly with good visualization of the bladder. The incision was stretched laterally. Next, the Harish O retractor was placed into the incision. The vesicouterine peritoneum was dissected off the lower uterine segment. The lower uterine segment was incised in a low transverse fashion with the scalpel, and the incision extended laterally using digital technique. The baby was found to be in the occiput posterior position. The nurse aided with a sterile gloved hand from the vagina, and elevated the head in a cephalad direction. I then proceeded to deliver the head atraumatically, followed by the shoulders and body of the . After delivery of the , the nose and mouth were suctioned. The cord was clamped and cut immediately, and the baby handed off to waiting Pediatric Team. scores of 3, 7, and 9 were obtained. Cord blood and cord gases were obtained. The cord gases were within normal limits, pH of 7.3. The placenta was then spontaneously delivered. The uterus was exteriorized, and cleared of all clots and debris using moist laparotomy sponges. I then repaired the uterus with #1 PDS in continuous running locking fashion. A second layer was used to run a #1 PDS in continuous running fashion with good tissue approximation. A 2-layer uterine closure was performed for excellent tissue approximation and hemostasis. The cul-de-sac and pericolic gutters were cleared of all clots and debris. The uterus returned to the abdomen. The abdomen was irrigated with sterile water. After irrigation again, hemostasis was confirmed, and all surgical sites were dry. The Harish O retractor was then removed, all laparotomy sponges were removed from the abdomen, and the counts were correct x2 at this point. I then proceeded to close the rectus fascia using #1 PDS in double-looped fashion. This was run in continuous fashion with good tissue approximation. The subcutaneous tissue was closed in 2 layers using 3-0 plain gut. The skin was closed in subcuticular fashion using a 3-0 Monocryl Stratafix with good tissue approximation. A thin layer of Dermabond was then placed. After the Dermabond dried, Sylke sterile dressing was placed over the incision. The patient tolerated the procedure well. Sponge, lap, and needle counts were correct x4. INTRAOPERATIVE COMPLICATIONS: None. ESTIMATED BLOOD LOSS: 750 mL POSTOPERATIVE CONDITION: Stable. SPECIMENS: Cord blood, placenta, cord gases. MEDICATIONS: The patient received 3 grams of Ancef prior to skin incision. DO YESIKA Gutiérrez TID: [id number] RECEIPT: [id number] [facility]
--- NOTE | 2025-02-05 01:14 | DVHPN2 ---
Visit Coding OBGYN Date of Service: Feb 05, 2025 Billing Provider: RUSS NAVARRETE DO SUPERVISOR PAINTING DEPARTMENT Common Visit Codes: PROCEDURE ONLY SUPERVISOR PAINTING DEPARTMENT Procedure Codes: [id number] OB CARE, DEL RUSS NAVARRETE DO Feb 05, 2025 01:14
[2025-02-05] MEDS ORDERED: NALOXONE HCL 0.4 MG/ML VIAL IV PRN (01:15)
[2025-02-05] MEDS ORDERED: DexAMETHasone SOD PHOS 10MG/1ML VIAL INJ IV PRN (01:15)
[2025-02-05] MEDS ORDERED: KETOROLAC TROMETH 30 MG/ML 1ML VIAL IV PRN (01:15)
[2025-02-05] MEDS: ONDANSETRON HCL 4 MG/2 ML VIAL IV ONE (01:15)
[2025-02-05] MEDS: ceFAZolin 1GM/50ML 50 ML IV SCH (05:42)
--- NOTE | 2025-02-05 07:12 | DVHPN2 ---
Progress Note Date Seen: Feb 05, 2025 Subjective POD#0 s/p 1' C/S for CPD and NRFHR pattern, Failed induction for GDMA1 S: Pain controlled. Lochia mild. Patient is hungry requesting regular diet vital signs Vital Sign Date Time Temp Pulse Resp B/P (MAP) Pulse Ox O2 Delivery O2 Flow Rate FiO2 02/05/25 06:00 63 16 115/58 (77) 93 02/05/25 04:00 98.0 98.0 02/05/25 02:00 Nasal Cannula 2.0 02/05/25 01:15 94 Total Intake and Output 02/04/25 02/04/25 02/05/25 15:00 23:00 07:00 Output Total 500 ml Balance -500 ml medications Current Medications Medications Dose Ordered Sig/Rehan Route Start Time Stop Time Status Last Admin Dose Admin Lactated Ringer's 1,000 ml @ 125 mls/hr Q8H IV 02/02/25 09:15 02/04/25 19:11 125 MLS/HR Lindsay Giles 1 pad PRN PRN TOP 02/02/25 09:15 02/02/25 21:50 1 PAD Sodium Lauryl Sulfate 240 ml PRN PRN TOP 02/02/25 09:15 02/02/25 21:50 240 ML Benzocaine 1 applic PRN PRN TOP 02/02/25 09:15 02/02/25 21:50 1 APPLIC Lidocaine HCl 20 ml ONCE PRN IJ 02/02/25 09:15 Ondansetron HCl 4 mg Q4HPRN PRN IV 02/02/25 09:15 02/04/25 18:24 4 MG Levothyroxine Sodium 75 mcg DAILY@0500 PO 02/04/25 05:00 02/05/25 05:39 75 MCG Terbutaline Sulfate 0.25 mg ONCE PRN SC 02/03/25 23:30 Ondansetron HCl 4 mg Q4HP PRN IV 02/05/25 01:00 Cefazolin Sodium 50 ml @ 100 mls/hr Q8H IV 02/05/25 06:00 02/05/25 22:29 02/05/25 05:42 100 MLS/HR Diphenhydramine HCl 25 mg Q4HP PRN IV 02/05/25 01:00 Acetaminophen 1,000 mg [id number] PRN IV 02/05/25 01:00 02/06/25 00:59 Hydromorphone HCl 1 mg Q4HP PRN IV 02/05/25 01:00 Diphenhydramine HCl 25 mg Q4HP PRN IV 02/05/25 01:15 Ondansetron HCl 4 mg Q4HP PRN IV 02/05/25 01:15 Ketorolac Tromethamine 30 mg Q6HP PRN IV 02/05/25 01:15 02/10/25 01:14 Enoxaparin Sodium 40 mg DAILY SC 02/05/25 07:00 laboratory and microbiology Laboratory Tests 02/02/25 09:15 Test 02/02/25 09:15 Range/Units Serum Glucose 85 74-106 mg/dL Objective O: AFVSS Chest: heart and lung sounds normal. Abd soft, non-tender, fundus firm, BS, no rebound or guarding, Incision - dressing and incision clean, dry, intact Ext Neg Homans, Non-tender, edema Lochia - minimal Labs Reviewed Assessment/Plan POD#0 s/p 1' C/S doing well, GDMA1 Plan: Advance orders, pain control., regular diet, Accucheck AC and qHS Care endorsed to oncoming physician, Dr Dos Santos Plan discussed with: Patient, Other (RN) Visit Coding OBGYN Date of Service: Feb 05, 2025 Billing Provider: RUSS NAVARRETE DO SITE ADMINISTRATOR Common Visit Codes: [id number] INP/OBS CARE(HIGH) RUSS NAVARRETE DO Feb 05, 2025 07:12
[2025-02-05] MEDS: ENOXAPARIN SOD 40 MG/0.4 ML SYRINGE SC SCH (07:59)
[2025-02-05] MEDS: ACETAMINOPHEN IV 1000 MG/100ML (10MG/ML) IV PRN (15:51)
[2025-02-05] MEDS: HYDROcodone-ACET 5/325MG TAB PO PRN (21:53)
[2025-02-06] MEDS ORDERED: HYDROcodone-ACET 5/325MG TAB PO PRN (00:30)
[2025-02-06] MEDS: IBUPROFEN 800 MG TAB PO PRN (00:37)
[2025-02-06 03:15] VITALS: BP 115/70; PULSE 75; RESP 14; TEMP 98.2; O2SAT 95
[2025-02-06] MEDS: SIMETHICONE 80 MG CHEWABLE TABLET PO SCH (05:30)
--- NOTE | 2025-02-06 06:29 | DVHPN2 ---
Chief Complaints Patient reports: No new complaints, Feels better, Other ( section secondary to failed induction day 2 ;A1 GDM) Nursing reports: No new complaints Objective Vitals Vital Signs Date Time Temp Pulse Resp B/P (MAP) Pulse Ox O2 Delivery O2 Flow Rate FiO2 02/06/25 03:15 98.2 75 14 115/70 (85) 95 98.2 02/05/25 19:00 Room Air 02/05/25 07:30 2.0 02/05/25 01:15 94 Medications Current Medications Medications (Trade) Dose Ordered Sig/Rehan Route PRN Reason Start Time Stop Time Status Last Admin Acetaminophen/ Hydrocodone Bitart ([place] 5/325MG Tab) 1 tab Q4HPRN PRN PO FOR PAIN 1-6 02/06/25 00:30 Acetaminophen/ Hydrocodone Bitart ([place] 5/325MG Tab) 2 tab Q4HPRN PRN PO SEVERE PAIN (7-10 PAIN SCALE) 02/05/25 21:30 02/05/25 21:53 Dimethicone (Mylicon Tab) 80 mg QID PO 02/06/25 06:00 02/06/25 05:30 Enoxaparin Sodium (Lovenox) 40 mg DAILY SC 02/06/25 08:00 Ibuprofen (Motrin Tablet) 800 mg Q8HP PRN PO BREAKTHROUGH PAIN 02/06/25 00:00 02/06/25 00:37 General: Normal Neck: Normal Lungs: Normal Cardiovascular: Normal Abdominal: Normal Musculoskeletal: Normal Extremities: Normal Skin: Normal Neurological: Normal Studies Laboratory Tests 02/02/25 09:15 Test 02/02/25 09:15 Range/Units Serum Glucose 85 74-106 mg/dL Ass/Plan Plan op day 2 stable improved see discharge summary see discharge orders IMANI LEE DO Feb 06, 2025 06:29
--- NOTE | 2025-02-06 06:31 | DVHDS2 ---
Discharge Summary Discharge Summary Date of Admission: Feb 05, 2025 Date of Discharge: Feb 06, 2025 Discharge Diagnosis: GDM A1 Procedures section day 2 Brief History: Patient was admitted for induction failed induction add section Hospital Course Without complications Physical exam on Discharge Alert awake oriented x3 for vital signs stable wounds clean dry intact Discharge Disposition: Home (Positive bowel sound uterus 12-) Discharge Instructions Pelvic rest 6 weeks shower only fever Medications Post hemorrhage precautions Rx sent to pharmacy by Follow up 1-2 weeks wound check Visit Coding OBGYN Date of Service: Feb 06, 2025 Billing Provider: IMANI LEE DO INSTRUCTION LIBRARIAN Common Visit Codes: [id number] OBS CARE (HIGH) INSTRUCTION LIBRARIAN Procedure Codes: [id number] OB CARE, DEL IMANI LEE DO Feb 06, 2025 06:31
[2025-02-06 07:00] VITALS: BP 109/69; PULSE 86; RESP 16; TEMP 98.4; O2SAT 96
[2025-02-06] MEDS ORDERED: BISACODYL 10 MG RECT SUPP PR PRN (07:15)
[2025-02-06] MEDS ORDERED: HYDR-4902 PO (07:25)
[2025-02-06] MEDS ORDERED: IBUP-1455 PO (07:25)
[2025-02-06] MEDS ORDERED: ENOXAPARIN SOD 40 MG/0.4 ML SYRINGE SC SCH (08:00)
[2025-02-06 08:58] LABS: Basophils # (auto) 0 10 ^3/uL (0-0.2); Basophils % (auto) 0.1 % (0.0-2.0); Eosinophils # (auto) 0.2 10 ^3/uL (0-0.8); Eosinophils % (auto) 1.4 % (0.0-7.0); Hematocrit 35.3 % (36.0-46.0); Lymphocytes # (auto) 3.8 10 ^3/uL (0.4-5.4); Lymphocytes % (auto) 22.2 % (10.0-50.0); Mean Corpuscular Hemoglobin 26.2 pg (28.0-32.0); Mean Corpuscular Hgb Conc. 31.3 g/dL (32.0-36.0); Mean Corpuscular Volume 83.8 fL (80.0-100.0); Monocytes % (auto) 6.1 % (0.0-12.0); Neutrophils # (auto) 11.9 10 ^3/uL (1.6-8.6); Neutrophils % (auto) 70.2 % (37.0-80.0); Platelet Count (auto) 177 10^3/uL (140-450); Red Blood Cells 4.21 10^6/uL (4.0-5.20); Red Cell Distribution Width 15.7 % (11.8-14.3)
[2025-02-06 11:00] VITALS: BP 121/86; PULSE 71; RESP 17; TEMP 98; O2SAT 99
[2025-02-06] MEDS: DOCUSATE SOD 100 MG CAP PO SCH (11:19)
[2025-02-06] MEDS: ENOXAPARIN SOD 40 MG/0.4 ML SYRINGE SC SCH (11:20)
[2025-02-06 15:00] VITALS: BP 135/79; PULSE 90; RESP 16; TEMP 98.1; O2SAT 98
[2025-02-06 19:00] VITALS: BP 113/68; PULSE 89; RESP 18; TEMP 97.6; O2SAT 98
[2025-02-06 19:51] VITALS: BP 113/68; PULSE 89; RESP 18; TEMP 97.6; O2SAT 98
== END 2025-02-06 19:51 | disposition home or self-care (01) | DRG 540 ==
LOC: LDRP 08:51 → UNDOADMIN 08:51 → PREOBSVTOIN 09:00 → LDRP 02-04 23:53
PROVIDERS: ADMIT Obstetrics & Gynecology; ATTEND Obstetrics & Gynecology
PROC: 10D00Z1 Extraction of Products of Conception, Low, Open Approach (ICD-10-PCS; principal; 2025-02-05)
DX: O24.420 Gestational diabetes mellitus in childbirth, diet controlled (principal); O61.9 Failed induction of labor, unspecified; E66.01 Morbid (severe) obesity due to excess calories; O33.9 Maternal care for disproportion, unspecified; O76 Abnormality in fetal heart rate and rhythm complicating labor and delivery; O99.214 Obesity complicating childbirth; Z37.0 Single live birth; Z91.041 Radiographic dye allergy status; Z91.013 Allergy to seafood; Z79.899 Other long term (current) drug therapy; Z79.82 Long term (current) use of aspirin; Z3A.39 39 weeks gestation of pregnancy
CPT/HCPCS: 36415; 59200; 62282; 76815; 80053; 80307; 81001; 82948; 82962; 84439; 84443; 85025; 85610; 85730; 86780; 86803; 86850; 86900; 86901; 94760; 94762; 96360; 96361; 96365; 96366; 96374; 96375; G0378; J0131; J1100; J1885; J2003; J2250; J2405; J2590; J3490